=== PATIENT | male | born 1985 | race Two or more races ===

== ENCOUNTER 2020-08-14 22:44 | Emergency (ER) | payer BC ==
[~2020-08-14] VITALS: Ht 157.5 cm; Wt 68.0 kg
[2020-08-14 23:43] VITALS: BP 134/86
[2020-08-15] MEDS ORDERED: NEOMYCIN-BACITRACIN-POLYM UNITDOSE PKG TOP OINT TOP ONE
[2020-08-15] MEDS ORDERED: TETANUS-DIPTH-ACEL PERTUSSIS 0.5ML SYR Tdap IM ONE (01:00)
== END 2020-08-15 01:09 | disposition home or self-care (01) ==
LOC: ER 22:44
DX: S01.81XA Laceration without foreign body of other part of head, initial encounter (principal); W19.XXXA Unspecified fall, initial encounter; Y93.89 Activity, other specified; Y92.89 Other specified places as the place of occurrence of the external cause; Y99.8 Other external cause status
CPT/HCPCS: 12011; 70450; 90471; 90715